=== PATIENT | female | born 1950 | race Two or more races ===

== ENCOUNTER 2018-02-22 10:47 | Outpatient (CLI) | payer MEDICARE ==
[~2018-02-22] VITALS: Ht 167.6 cm; Wt 51.3 kg
[2018-02-22 12:14] VITALS: BP 119/73
[2018-02-22] MEDS ORDERED: PREMARIN42.5 GM VG (12:19)
[2018-02-22] MEDS ORDERED: ECOTRIN81 MG PO (12:19)
[2018-02-22] MEDS ORDERED: EVISTA60 MG ORAL (12:19)
--- NOTE | 2018-03-01 09:25 | GI Initial Consult Note ---
History of Present Illness General Date patient seen: Feb 22, 2018 Time patient seen: 09:19 Referring physician: LILLIE Reason for Consultation: EGD/Colonoscopy Present Illness HPI 67 year old female patient referred by Dr. Aldridge for c/o of dysphagia. Patient has complaint of difficulty swallowing certain food types like pasta and and rice. In addition, the patient c/o of having dark bowel movements. Denies any current use of antibiotics. Her last colonoscopy was 8 years ago. Denies any unintentional weight loss or changes in dietary habits. No signs of abuse or neglect. Patient is not fall risk. Home Meds Reported Medications Estrogens Conjugated (Premarin) 30 Gm Cream.appl, 42.5 GM VG, GM 02/22/18 Aspirin (ECOTRIN) 81 Mg Tablet.dr, 81 MG PO DAILY, TAB 02/22/18 Raloxifene Hcl* (EVISTA*) 60 Mg Tablet, 60 MG ORAL DAILY, TAB 02/22/18 Med list reviewed/reconciled: Yes Allergies: Coded Allergies: No Known Allergies (Unverified , 02/25/18) Patient History History Provided By: Patient PMH Narrative Osteoporosis Past Surgical History: Laparoscopic Appendectomy Tonsillectomy Varicose Vein Tx Breast Bx Family History Narrative Father >> Lung CA Mother >> Breast CA Social History: Reports: alcohol use - 2 glasses weekly Review of Systems All Other Systems: negative except mentioned in HPI Physical Exam T 98 BP 119/73 P 75 94 RA HT 5'6 WT 113.9 94 RA Sp02 EP Interpretation: reviewed, normal General Appearance: well appearing, no apparent distress, alert Head: normocephalic EENT: PERRL/EOMI, normal ENT inspection Neck: supple Respiratory: normal breath sounds, no respiratory distress Cardiovascular: normal rate Gastrointestinal: normal inspection, non tender, soft, normal bowel sounds, non -distended Rectal: deferred Genitourinary: no CVA tenderness Musculoskeletal: normal inspection, back normal Neurologic: normal inspection, alert, oriented x3, responsive Psychiatric: normal inspection, judgement/insight normal, memory normal Skin: normal inspection, normal color, no rash, warm/dry, palpation normal, well hydrated Lymphatic: normal inspection, no adenopathy GI: Plan Problems: (1) Dysphagia (2) Dark stools (3) Colonoscopy planned (4) Encounter for diagnostic endoscopy Plan EGD/colonoscopy to be scheduled 02/25/18. - CLD & (Nulytely/Suprep/Movi-Prep) prep instructions given and acknowledged by patient. - NPO @ [place] day prior procedure explained. Seen with Dr. Womack. Thank you for this patient referral. Note this is a late entry. Molly Fuller N.P. Mar 01, 2018 09:25
== END 2018-02-22 11:22 | disposition home or self-care (01) ==
LOC: PAN 10:47
DX: R13.10 Dysphagia, unspecified (principal); K92.1 Melena; Z79.82 Long term (current) use of aspirin; M81.0 Age-related osteoporosis without current pathological fracture; Z90.89 Acquired absence of other organs; Z80.3 Family history of malignant neoplasm of breast; Z80.1 Family history of malignant neoplasm of trachea, bronchus and lung
CPT/HCPCS: 99201